=== PATIENT | female | born 1970 | race American Indian/Alaskan Native ===

== ENCOUNTER 2017-03-27 14:32 | Emergency (ER) | payer MEDICAID ==
[2017-03-27 14:49] VITALS: O2SAT 100
[2017-03-27] MEDS ORDERED: DiphenhydrAMINE 50 mg/ml Inj IVP STA (15:00)
[2017-03-27] MEDS ORDERED: Sodium Chloride 0.9% 1,000 ML IV ONE (15:01)
[2017-03-27] MEDS ORDERED: DiphenhydrAMINE 50 mg/ml Inj ONE (15:06)
[2017-03-27] MEDS ORDERED: Sodium Chloride 0.9% 1,000 ML ONE (15:06)
--- NOTE | 2017-03-27 16:22 | CT ---
PROCEDURE: CT scan brain dated 03/27/2017. HISTORY: Persistent right sided headache COMPARISON: No prior TECHNIQUE: Axial computed tomography images were obtained through the head/brain without intravenous contrast. Radiation dose: Total exam DLP = 750.12 mGy-cm. This CT exam was performed using one or more of the following dose reduction techniques: Automated exposure control, adjustment of the mA and/or kV according to patient size, and/or use of iterative reconstruction technique. FINDINGS: HEMORRHAGE: Current study reveals no acute parenchymal, subarachnoid nor extra-axial hemorrhage. BRAIN: No evidence of large acute infarct. No obvious parenchymal nor extra-axial mass or collection seen on this noncontrast study. VENTRICLES: Unremarkable. No hydrocephalus. CALVARIUM: Unremarkable. PARANASAL SINUSES: Unremarkable as visualized. No significant inflammatory changes. MASTOID AIR CELLS: Unremarkable as visualized. No inflammatory changes. OTHER FINDINGS: None. IMPRESSION: No acute intracranial hemorrhage.
--- NOTE | 2017-03-27 16:51 | C.PDOC ---
History Of Present Illness 46 y/o female presents to the ED with complaints of right sided headache with light sensitivity for the past hour. Pt reports history of migraines and states current pain is similar to prior migraines, but stronger in intensity. Pt took NSAID without relief. She denies vomiting, visual changes, facial droop, slurred speech, extremity weakness, sensory changes, fever, neck pain/stiffness , head trauma. Time Seen by Provider: 03/27/17 14:54 Chief Complaint (Nursing): Headache History Per: Patient History/Exam Limitations: no limitations Current Symptoms Are (Timing): Still Present Severity: Moderate Quality: "Pain" Associated Symptoms: Photophobia. denies: Blurred Vision, Vomiting, Extremity Weakness Recent travel outside of the [place]: No Past Medical History Reviewed: Historical Data, Nursing Documentation, Vital Signs Vital Signs: Last Vital Signs Temp 98.3 F 03/27/17 17:02 Pulse 72 03/27/17 17:02 Resp 18 03/27/17 17:02 BP 125/78 03/27/17 17:02 Pulse Ox 100 03/27/17 17:05 - Medical History PMH: Migraine Family History: States: No Known Family Hx - Social History Hx Alcohol Use: Yes Hx Substance Use: No - Immunization History Hx Tetanus Toxoid Vaccination: No Hx Influenza Vaccination: No Hx Pneumococcal Vaccination: No Review Of Systems Except As Marked, All Systems Reviewed And Found Negative. Constitutional: Negative for: Fever, Chills Eyes: Negative for: Vision Change Cardiovascular: Negative for: Chest Pain, Palpitations Respiratory: Negative for: Cough, Shortness of Breath Gastrointestinal: Negative for: Nausea, Vomiting Neurological: Positive for: Headache. Negative for: Weakness, Numbness, Change in Speech Physical Exam - Physical Exam Appears: Non-toxic, In Acute Distress (in mild pain) Skin: Warm, Dry, No Rash Head: Atraumatic, Normacephalic Eye(s): bilateral: Normal Inspection, PERRL, EOMI Oral Mucosa: Moist Neck: Normal, Normal ROM, Supple, Other (no meningismus) Cardiovascular: Rhythm Regular, No Murmur Respiratory: Normal Breath Sounds, No Rales, No Rhonchi, No Wheezing Gastrointestinal/Abdominal: Normal Exam, Bowel Sounds, Soft, No Tenderness Extremity: Normal ROM Extremity: Bilateral: Atraumatic Neurological/Psych: Oriented x3, Normal Speech, Normal Cognition, Normal Cranial Nerves, No Cerebellar Signs, Normal Motor, Normal Sensation, Normal Reflexes Gait: Steady ED Course And Treatment O2 Sat by Pulse Oximetry: 100 (room air) Pulse Ox Interpretation: Normal - CT Scan/US CT head Other Rad Studies (CT/US): Read By Radiologist, Radiology Report Reviewed CT/US Interpretation: Accession No. : [id number]. Patient Name / ID : TARUN Cano / [id number]. Exam Date : 03/27/2017 15:46:35 ( Approved ). Study Comment : Sex / Age : F / 46Y. Creator : Kevin Lee MD. Dictator : Kevin Lee MD. Rail Layer : Composite Technician : Kevin Lee MD. Approver2 : Report Date : 03/27/2017 16:20:50. My Comment : . PROCEDURE: CT scan brain dated 03/27/2017. HISTORY: Persistent right sided headache. COMPARISON: No prior. TECHNIQUE: Axial computed tomography images were obtained through the head/brain without intravenous contrast. Radiation dose: Total exam DLP = 750.12 mGy-cm. This CT exam was performed using one or more of the following dose reduction techniques: Automated exposure control, adjustment of the mA and/or kV according to patient size, and/or use of iterative reconstruction technique. FINDINGS: HEMORRHAGE: Current study reveals no acute parenchymal, subarachnoid nor extra-axial hemorrhage. BRAIN: No evidence of large acute infarct. No obvious parenchymal nor extra-axial mass or collection seen on this noncontrast study. VENTRICLES: Unremarkable. No hydrocephalus. CALVARIUM: Unremarkable. PARANASAL SINUSES : Unremarkable as visualized. No significant inflammatory changes. MASTOID AIR CELLS: Unremarkable as visualized. No inflammatory changes. OTHER FINDINGS : None. IMPRESSION: No acute intracranial hemorrhage. Progress Note: Plan: Patient/family requesting CT scan head - ordered and reviewed. Patient given IV NS bolus, IV reglan, IV benadryl. Reevaluation Time: 16:50 Reassessment Condition: Improved (On reassessment, patient states her headache has improved and she feels significantly better. CT head (-) for acute findings. Patient is well appearing, with normal vitals, and is comfortable being discharged home. She has neurology appointment already scheduled this week. Patient understands she should return to [facility] immediately if symptoms worsen - Rx for Fiorecet given.) Disposition Counseled Patient/Family Regarding: Studies Performed, Diagnosis, Need For Followup, Rx Given - Disposition Referrals: Keon Gasca MD [Staff Provider] - Disposition: HOME/ ROUTINE Disposition Time: 16:50 Condition: STABLE Additional Instructions: FOLLOW UP WITH NEUROLOGY SCHEDULED THIS WEEK USE MEDICATION NEEDED FOR PAIN RETURN TO ER IF SYMPTOMS WORSEN Prescriptions: Acetaminophen/Butalbital/Caf [Fioricet] 1 tab PO TID PRN #20 tab PRN Reason: Headache Instructions: Migraine Headache (ED) Print Language: IRISH - POA Present On Arrival: None - Clinical Impression Clinical Impression: Migraine - Scribe Statement The provider has reviewed the documentation as recorded by the Gabe Corrales Provider Attestation: All medical record entries made by the Gabe were at my direction and personally dictated by me. I have reviewed the chart and agree that the record accurately reflects my personal performance of the history, physical exam, medical decision making, and the department course for this patient. I have also personally directed, reviewed, and agree with the discharge instructions and disposition.
[2017-03-27 17:03] VITALS: BP 125/78; PULSE 72; RESP 18; TEMP 98.3
== END 2017-03-27 17:04 | disposition home or self-care (01) ==
LOC: C.ER 14:32
DX: G43.909 Migraine, unspecified, not intractable, without status migrainosus (principal)
CPT/HCPCS: 70450; 96360; 96374; 99285; J1200; J2765; J7040